=== PATIENT | male | born 1980 | race Caucasian/White ===

== ENCOUNTER 2017-01-11 23:32 | Emergency (ER) | payer BC, SELFPAY ==
[2017-01-11] MEDS ORDERED: Ondansetron HCl/PF 4 MG/2 ML Vial ONE (23:58)
[2017-01-11] MEDS ORDERED: Famotidine 20 MG TAB ONE (23:58)
[2017-01-12] MEDS ORDERED: Ondansetron HCl/PF 4 MG/2 ML Vial ONE
[2017-01-12 00:02] LABS: #Basophils 0.1 thou/uL (0.0-0.2); #Eosinphils 0.2 thou/uL (0.0-0.7); #Lymphocytes 4.2 thou/uL (1.20-3.40); #Monocytes 1.1 thou/uL (0.11-0.59); #Neutrophils 7.3 thou/uL (1.40-6.50); %Eosinophils 1.6 % (0.0-10.0); %Monocytes 8.7 % (0.0-10.0); Mean Platelet Volume 6.7 fL (7.4-10.4); Red Blood Cell (RBC) Count 6.25 mill/uL (4.70-6.10); White Blood Cell (WBC) Count 12.9 thou/uL (4.8-10.8)
[2017-01-12] MEDS ORDERED: Famotidine In NaCl 20 mg/50 ml Premix Bag ONE (00:02)
[2017-01-12] MEDS ORDERED: Fentanyl 100 MCG/2 ML VIAL ONE ×2 (00:04→00:25)
[2017-01-12 00:10] LABS: ALT (SGPT) 42 U/L (0-55); AST (SGOT) 25 U/L (5-34); Alkaline Phosphatase 103 U/L (40-150); Anion Gap 18 mmol/L (10-20); BUN (Urea Nitrogen) 21 mg/dL (8.9-20.6); Bilirubin, Total 0.4 mg/dL (0.2-1.2); Calc. Creatinine Clearance 0 mL/min (70-130); Calcium 9.6 mg/dL (7.8-10.44); Carbon Dioxide 22 mmol/L (22-29); Chloride 103 mmol/L (98-107); Estimated GFR-MDRD 69; Globulin 3.9 g/dL (2.4-3.5); Lipase 59 U/L (8-78); Protein, Total 8.4 g/dL (6.0-8.3)
[2017-01-12 00:12] LABS: Troponin I Less than 0.010 ng/mL (< 0.028)
[2017-01-12 00:28] LABS: Bilirubin Negative (Negative); Blood, Urine Negative (Negative); Glucose, Urine (Dipstick) Negative (Negative); Ketone, Urine Negative (Negative); Nitrite Negative (Negative); Protein, Urine (Dipstick) 30 mg/dL (Neg-Trace)
[2017-01-12 00:30] LABS: Bacteria/HPF 1+ HPF (None Seen); RBC/HPF 0-3 HPF (0-3); Squamous Epithelial 0-3 HPF (0-3)
[2017-01-12] MEDS ORDERED: cefTRIAXone\\ROCEPHIN 1 GM VIAL ONE (01:22)
[2017-01-12] MEDS ORDERED: Sodium Chloride 0.9% 100 ML ONE (01:23)
--- NOTE | 2017-01-12 07:22 | RAD ---
PORTABLE CHEST: Date: 01/11/17 An AP portable film at 2340 hours is compared with the 11/05/13 study. There has been no adverse interval change. The heart is normal in size and the lungs are clear. No i nfiltrate or effusion was seen. The mediastinum appears normal and the trachea is midline. IMPRESSION: No acute thoracic findings. POS: HOME
--- NOTE | 2017-01-12 08:51 | CT ---
PRELIMINARY REPORT/[facility]/EMERGENCY AFTER HOURS PROCEDURE: EXAM: CT Abdomen and Pelvis Without Intravenous Contrast. CLINICAL HISTORY: Pain; Abdominal pain; Flank; Right; Patient HX: Pt presents to the er for stabbing back pain that radiates to right side; Onset earlier today. HX of kidney stones TECHNIQUE: Axial computed tomography images of the abdomen and pelvis without intravenous contrast. Coronal reformatted images were created and reviewed. EXAM DATE/TIME: 01/12/2017 12:49 AM COMPARISON: Correlation is made with report only from study dated 12/31/2007. FINDINGS: Lower thorax: No acute findings. ABDOMEN: Liver: The liver is enlarged and diffusely low in density compatible with steatosis. Gallbladder and bile ducts: The gallbladder is contracted. No calcified stones. No ductal dilation. Pancreas: Unremarkable. No ductal dilation. Spleen: Unremarkable. No splenomegaly. Adrenals: Unremarkable. No mass. Kidneys and ureters: Unremarkable. No obstructing stones. No hydronephrosis. Stomach and bowel: 12 mm rectangular density within the lumen of the ascending colon which may repre sent a pill remnant. No bowel obstruction. No appreciable mucosal thickening. Appendix: Normal appendix. No findings to suggest acute appendicitis. PELVIS: Bladder: The urinary bladder is partially decompressed. Moderate circumferential urinary bladder wal l thickening. Reproductive: Unremarkable as visualized. ABDOMEN and PELVIS: Intraperitoneal space: Unremarkable. No free air. No significant fluid collection. Bones/joints: No acute fracture. No dislocation. Soft tissues: Small fat-containing umbilical and bilateral inguinal hernias. Vasculature: Unremarkable. No abdominal aortic aneurysm. Lymph nodes: Borderline prominent mary kate hepatic and mary kate caval lymph nodes. IMPRESSION: 1. No renal, ureteral or bladder calculi. No evidence for renal obstruction. 2. Moderate circumferential urinary bladder wall thickening. This may be related to degree of disten tion. Please correlate clinically for cystitis. 3. Other findings as above. ---We are pleased to participate in the care of your patient.--- Thank you for allowing us to participate in the care of your patient. Dictated and Authenticated by: Junior James MD 01/12/2017 1:24 AM Central Time ([place] \T\ [place]) FINAL REPORT CT ABDOMEN AND PELVIS WITHOUT CONTRAST: Date: 01/12/[address] of the abdomen and pelvis was done without oral or IV contrast. Axial slices were acquired and then coronal reconstructions were done. FINDINGS: The lung bases are clear. The liver is perhaps upper normal in size and internally it is somewhat low density suggesting the p ossibility of fatty infiltration. No focal hepatic lesions were appreciated. A little increased dens ity in the medial right lobe on scan 27 of the axial series is probably volume averaging. The pancre as was unremarkable. The gallbladder contained no observable calcifications. The adrenal glands and kidneys were unremarkable. There was no sign of renal or ureteral calculi. The abdominal aorta was n ormal in caliber. The spleen was normal in size. The bowel is nondistended and there are no inflammatory changes around bowel. The appendix appears n ormal. There is no bowel wall thickening. No free air or free fluid was seen. CT of the pelvis showed no pelvic masses, inflammatory changes, or adenopathy. The urinary bladder w all is upper normal in thickness, but this could be related to it not being very distended. There is a minimal fat-filled umbilical hernia. The remainder of the abdominal wall appears normal. The patient has a congenitally small spinal canal which could contribute to some relative spinal neha nosis at several levels. The L2-L3 level, in particular, is quite small, as is the L4 level. There i s a mild concentric bulge of the L5-S1 disc. If the patient's pain suggested lumbar spine issues, a MRI might be useful for further investigation of neural impingement. IMPRESSION: 1. Probable fatty infiltration of the liver. 2. No urinary tract obstruction or calculi. 3. 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 Further investi gation here could be fruitful. Report in agreement with preliminary reading by Brennan. POS: HOME
== END 2017-01-12 02:05 | disposition home or self-care (01) ==
LOC: BURERS 23:32
DX: K80.50 Calculus of bile duct without cholangitis or cholecystitis without obstruction (principal); N30.00 Acute cystitis without hematuria; E78.5 Hyperlipidemia, unspecified; I10 Essential (primary) hypertension; F17.210 Nicotine dependence, cigarettes, uncomplicated; Z79.82 Long term (current) use of aspirin
CPT/HCPCS: 71010; 74176; 80053; 81003; 81015; 82553; 83690; 84484; 85025; 87086; 87491; 87591; 93005; 96361; 96365; 96367; 96375; J0696; J2405; J3010; J7050

== ENCOUNTER 2018-02-06 20:21 | Emergency (ER) | payer SELFPAY ==
[2018-02-06] MEDS ORDERED: Magnesium Citrate 300 ML BOT ONE (20:51)
--- NOTE | 2018-02-06 23:08 | RAD ---
CHEST TWO VIEWS: 02/06/18 Comparison is made with prior chest films of 01/11/17 and 11/05/13. The heart is normal in size and the lungs are clear. No infiltrate or effusion was seen. The mediasti num appears normal. No pulmonary nodules are seen. IMPRESSION: No acute findings. POS: HOME
== END 2018-02-06 21:20 | disposition home or self-care (01) ==
LOC: BURERS 20:21
DX: K64.8 Other hemorrhoids (principal); E78.5 Hyperlipidemia, unspecified; I10 Essential (primary) hypertension; F17.210 Nicotine dependence, cigarettes, uncomplicated; Z79.899 Other long term (current) drug therapy; Z79.82 Long term (current) use of aspirin
CPT/HCPCS: 71046

== ENCOUNTER 2018-03-28 20:03 | Emergency (ER) | payer SELFPAY ==
[2018-03-28 20:42] LABS: Bilirubin Negative (Negative); Blood, Urine Negative (Negative); Clarity Clear (Clear); Glucose, Urine (Dipstick) Negative (Negative); Leukocyte Negative (Negative); Nitrite Negative (Negative); Protein, Urine (Dipstick) Negative (Neg-Trace); Urobilinogen 0.2 mg/dL (0.2-1.0); pH, Urine 5.5 (5.0-9.0)
[2018-03-28] MEDS ORDERED: Ketorolac Tromethamine 30 MG/ML VIAL ONE (21:10)
[2018-03-28] MEDS ORDERED: Dicyclomine 20 MG TAB ONE (21:10)
--- NOTE | 2018-03-28 23:19 | CT ---
CT ABDOMEN AND PELVIS WITHOUT CONTRAST: 03/28/2018 COMPARISON: 01/12/2017 TECHNIQUE: Axial slices were acquired and coronal reconstructions were done. FINDINGS: The lung bases are clear. The liver shows diffuse fatty infiltration but no focal findings. It is n ormal in size, as is the spleen. The pancreas, adrenal glands, and kidneys appear normal. There is no sign of urinary tract calculi or obstruction. The aorta is normal in caliber. There is no distention of bowel to suggest obstruction. The appendix is identified and appears julieta l. There are no inflammatory changes around the bowel. No free air or free fluid is seen. A calcif ication is noted in the bowel, in the right upper quadrant, that it is not of great concern. CT of the pelvis shows no pelvic masses, fluid collections, or inflammatory changes. As was mentione d on the prior report, the patient has a congenitally small spinal canal. IMPRESSION: Diffuse fatty infiltration of the liver. No acute abdominal or pelvic findings. POS: HOME
== END 2018-03-28 21:37 | disposition home or self-care (01) ==
LOC: BURERS 20:03
DX: S39.011A Strain of muscle, fascia and tendon of abdomen, initial encounter (principal); E78.5 Hyperlipidemia, unspecified; I10 Essential (primary) hypertension; F17.210 Nicotine dependence, cigarettes, uncomplicated; Z79.82 Long term (current) use of aspirin; Z79.899 Other long term (current) drug therapy; X58.XXXA Exposure to other specified factors, initial encounter
CPT/HCPCS: 74176; 81003; 96372; J1885

== ENCOUNTER 2018-10-01 09:51 | Emergency (ER) | payer OTHER, SELFPAY ==
[2018-10-01] MEDS ORDERED: methylPREDNISolone Sod Succ/PF 125 MG/2 ML VIAL ONE (10:33)
== END 2018-10-01 10:42 | disposition home or self-care (01) ==
LOC: BURERS 09:51
DX: S39.012A Strain of muscle, fascia and tendon of lower back, initial encounter (principal); M54.16 Radiculopathy, lumbar region; E78.5 Hyperlipidemia, unspecified; I10 Essential (primary) hypertension; F43.10 Post-traumatic stress disorder, unspecified; F17.210 Nicotine dependence, cigarettes, uncomplicated; X58.XXXA Exposure to other specified factors, initial encounter
CPT/HCPCS: 96372; J2930

== ENCOUNTER 2019-09-10 18:33 | Emergency (ER) | payer OTHER ==
[2019-09-10] MEDS ORDERED: Ketorolac Tromethamine 30 MG/ML VIAL ONE (19:07)
[2019-09-10] MEDS ORDERED: Ondansetron PF 4 MG/2 ML Vial ONE (19:07)
[2019-09-10] MEDS ORDERED: methylPREDNISolone Sod Succ/PF 125 MG/2 ML VIAL ONE (19:07)
[2019-09-10 19:19] LABS: #Basophils 0.1 thou/uL (0.0-0.2); #Eosinphils 0.2 thou/uL (0.0-0.7); #Lymphocytes 1.8 thou/uL (1.20-3.40); #Monocytes 1.1 thou/uL (0.11-0.59); #Neutrophils 10.9 thou/uL (1.40-6.50); %Basophils 0.9 % (0.0-1.0); %Eosinophils 1.4 % (0.0-10.0); %Lymphocytes 12.8 % (21.0-51.0); %Monocytes 7.5 % (0.0-10.0); %Neutrophils 77.4 % (42.0-75.0); Hemoglobin 16.9 g/dL (14.0-18.0); MDiff Complete? YES; Manual Diff?? NO; Mean Corpuscular Hemoglobin 26.3 pg (27.0-31.0); Mean Corpuscular Volume 87.4 fL (78.0-98.0); Mean Platelet Volume 7.2 fL (7.4-10.4); Platelet Count 313 thou/uL (130-400); RBC Distribution Width 14.7 % (11.5-14.5); Red Blood Cell (RBC) Count 6.42 mill/uL (4.70-6.10); White Blood Cell (WBC) Count 14.1 thou/uL (4.8-10.8)
[2019-09-10 19:26] LABS: ALT (SGPT) 64 U/L (8-55); AST (SGOT) 32 U/L (5-34); Albumin 4.8 g/dL (3.5-5.0); Alkaline Phosphatase 139 U/L (40-110); Anion Gap 16 mmol/L (10-20); BUN (Urea Nitrogen) 16 mg/dL (8.9-20.6); Bilirubin, Total 0.6 mg/dL (0.2-1.2); Calc. Creatinine Clearance 0 mL/min (70-130); Calcium 10.9 mg/dL (7.8-10.44); Carbon Dioxide 24 mmol/L (22-29); Chloride 104 mmol/L (98-107); Estimated GFR-MDRD 42; Glucose 113 mg/dL (70-105); Potassium 4.9 mmol/L (3.5-5.1); Protein, Total 8.8 g/dL (6.0-8.3); Sodium 139 mmol/L (136-145)
--- NOTE | 2019-09-10 20:02 | RAD ---
PORTABLE CHEST: 09/10/19 An AP portable film at 1859 is compared with the 02/06/18 study. The heart size is unchanged. There is no vascular congestion, edema, or pleural effusion. The lungs a re clear. IMPRESSION: No acute thoracic finding. POS: HOME
== END 2019-09-10 19:57 | disposition home or self-care (01) ==
LOC: BURERS 18:33
DX: I31.9 Disease of pericardium, unspecified (principal); K52.9 Noninfective gastroenteritis and colitis, unspecified; R11.2 Nausea with vomiting, unspecified; K21.9 Gastro-esophageal reflux disease without esophagitis; E78.5 Hyperlipidemia, unspecified; I10 Essential (primary) hypertension; F43.10 Post-traumatic stress disorder, unspecified; F17.210 Nicotine dependence, cigarettes, uncomplicated; Z79.899 Other long term (current) drug therapy; Z79.82 Long term (current) use of aspirin
CPT/HCPCS: 36415; 71045; 80053; 84484; 85025; 93005; 96361; 96374; 96375; J1885; J2405; J2930

== ENCOUNTER 2019-11-22 08:41 | Emergency (ER) | payer OTHER ==
[2019-11-22] MEDS ORDERED: Lidocaine Viscous Sol 2% 15 ml UD Cup ONE (09:05)
[2019-11-22 09:38] LABS: Bilirubin Negative (Negative); Blood, Urine Negative (Negative); Clarity Clear (Clear); Glucose, Urine (Dipstick) 250 mg/dL (Negative); Leukocyte Negative (Negative); Nitrite Negative (Negative); Protein, Urine (Dipstick) Negative (Neg-Trace)
== END 2019-11-22 10:03 | disposition home or self-care (01) ==
LOC: BURERS 08:41
DX: R33.9 Retention of urine, unspecified (principal); L89.322 Pressure ulcer of left buttock, stage 2; L89.312 Pressure ulcer of right buttock, stage 2; K21.9 Gastro-esophageal reflux disease without esophagitis; E78.5 Hyperlipidemia, unspecified; I10 Essential (primary) hypertension; F43.10 Post-traumatic stress disorder, unspecified; Z87.891 Personal history of nicotine dependence
CPT/HCPCS: 36416; 51702; 81003; 87086

== ENCOUNTER 2019-11-24 20:52 | Emergency (ER) | payer OTHER ==
[2019-11-24 21:37] LABS: Bilirubin Negative (Negative); Blood, Urine Large (Negative); Clarity Cloudy (Clear); Glucose, Urine (Dipstick) Negative (Negative); Leukocyte Moderate (Negative); Nitrite Positive (Negative); Protein, Urine (Dipstick) 100 mg/dL (Neg-Trace)
[2019-11-24 21:44] LABS: Bacteria/HPF 2+ HPF (None Seen); RBC/HPF Greater than 50 HPF (0-3); Squamous Epithelial 0-3 HPF (0-3); WBC/HPF 21-50 HPF (0-3)
== END 2019-11-24 21:55 | disposition home or self-care (01) ==
LOC: BURERS 20:52
DX: N30.00 Acute cystitis without hematuria (principal); K21.9 Gastro-esophageal reflux disease without esophagitis; E78.5 Hyperlipidemia, unspecified; I10 Essential (primary) hypertension; F43.10 Post-traumatic stress disorder, unspecified; F17.210 Nicotine dependence, cigarettes, uncomplicated
CPT/HCPCS: 81003; 81015; 87077; 87086; 87186; 99283

== ENCOUNTER 2021-02-14 03:23 | Emergency (ER) | payer OTHER | END 2021-02-14 04:10 | disposition home or self-care (01) | LOC: BURERS 03:23 | DX: F07.81 Postconcussional syndrome (principal); M54.5 Low back pain; G89.29 Other chronic pain; R20.2 Paresthesia of skin; K21.9 Gastro-esophageal reflux disease without esophagitis; E78.5 Hyperlipidemia, unspecified; I10 Essential (primary) hypertension; E11.9 Type 2 diabetes mellitus without complications; Z87.891 Personal history of nicotine dependence; Z79.899 Other long term (current) drug therapy | CPT/HCPCS: 70450 ==

== ENCOUNTER 2021-07-10 22:17 | Emergency (ER) | payer OTHER ==
[2021-07-11 23:01] LABS: SARS-CoV-2 PCR by NAA Not Detected (NotDetected)
== END 2021-07-10 22:43 | disposition home or self-care (01) ==
LOC: BURERS 22:17
DX: J02.9 Acute pharyngitis, unspecified (principal); Z20.822 Contact with and (suspected) exposure to COVID-19; K21.9 Gastro-esophageal reflux disease without esophagitis; I10 Essential (primary) hypertension; E78.5 Hyperlipidemia, unspecified; E11.9 Type 2 diabetes mellitus without complications; Z87.891 Personal history of nicotine dependence
CPT/HCPCS: 99283; U0003; U0005

== ENCOUNTER 2021-10-14 22:53 | Emergency (ER) | payer OTHER ==
[2021-10-14 23:17] LABS: #Basophils 0.1 thou/uL (0.0-0.2); #Eosinphils 0.4 thou/uL (0.0-0.7); #Lymphocytes 2.2 thou/uL (1.20-3.40); #Monocytes 0.8 thou/uL (0.11-0.59); #Neutrophils 3.6 thou/uL (1.40-6.50); %Basophils 1.6 % (0.0-1.0); %Eosinophils 5.7 % (0.0-10.0); %Lymphocytes 30.4 % (21.0-51.0); %Monocytes 11.8 % (0.0-10.0); %Neutrophils 50.6 % (42.0-75.0); Hemoglobin 13.7 g/dL (14.0-18.0); Mean Corpuscular HGB CONC 33.3 g/dL (32.0-36.0); Mean Corpuscular Hemoglobin 27.4 pg (27.0-31.0); Mean Corpuscular Volume 82.3 fL (78.0-98.0); Mean Platelet Volume 7.2 fL (7.4-10.4); Platelet Count 215 thou/uL (130-400); RBC Distribution Width 13.7 % (11.5-14.5); Red Blood Cell (RBC) Count 4.99 mill/uL (4.70-6.10); White Blood Cell (WBC) Count 7.2 thou/uL (4.8-10.8)
[2021-10-14 23:35] LABS: ALT (SGPT) 40 U/L (8-55); AST (SGOT) 47 U/L (5-34); Albumin 3.6 g/dL (3.5-5.0); Alkaline Phosphatase 91 U/L (40-110); Anion Gap 12 mmol/L (10-20); BUN (Urea Nitrogen) 15 mg/dL (8.9-20.6); Bilirubin, Total 0.6 mg/dL (0.2-1.2); Calc. Creatinine Clearance 0 mL/min (70-130); Calcium 9.3 mg/dL (7.8-10.44); Carbon Dioxide 26 mmol/L (22-29); Chloride 104 mmol/L (98-107); Glucose 114 mg/dL (70-105); Potassium 3.4 mmol/L (3.5-5.1); Protein, Total 6.6 g/dL (6.0-8.3); Sodium 139 mmol/L (136-145)
[2021-10-14 23:36] LABS: Acetaminophen Less than 6.0 mcg/mL (10.0-30.0); Alcohol Less than 10 mg/dL (Less than 10); CK (CPK) 797 U/L (30-200); Salicylate Less than 8.0 mg/dL (15.0-30.0)
[2021-10-15 01:22] LABS: SARS-CoV-2 NAA Rapid Test Not Detected (NotDetected)
== END 2021-10-15 01:00 | disposition short-term general hospital (02) ==
LOC: BURERS 22:53
DX: R09.02 Hypoxemia (principal); R06.81 Apnea, not elsewhere classified; M62.82 Rhabdomyolysis; Z20.822 Contact with and (suspected) exposure to COVID-19; K21.9 Gastro-esophageal reflux disease without esophagitis; I10 Essential (primary) hypertension; E11.9 Type 2 diabetes mellitus without complications; E78.5 Hyperlipidemia, unspecified; F17.220 Nicotine dependence, chewing tobacco, uncomplicated; Z79.899 Other long term (current) drug therapy
CPT/HCPCS: 36416; 70450; 71045; 80053; 80307; 82550; 82553; 83880; 84484; 85025; 93005; 94760; U0002

== ENCOUNTER 2021-10-25 19:39 | Emergency (ER) | payer OTHER ==
[2021-10-25] MEDS ORDERED: AMOXicillin 250 MG CAP ONE (20:40)
== END 2021-10-25 20:49 | disposition home or self-care (01) ==
LOC: BURERS 19:39
DX: J02.9 Acute pharyngitis, unspecified (principal); I10 Essential (primary) hypertension; K21.9 Gastro-esophageal reflux disease without esophagitis; E11.9 Type 2 diabetes mellitus without complications; E78.5 Hyperlipidemia, unspecified; Z87.891 Personal history of nicotine dependence
CPT/HCPCS: 87081; 87430; 99283

== ENCOUNTER 2021-11-18 06:54 | Emergency (ER) | payer OTHER ==
[2021-11-18] MEDS ORDERED: predniSONE 20 MG TAB ONE (09:40)
[2021-11-18 16:52] LABS: SARS-CoV-2 PCR by NAA Not Detected (NotDetected)
== END 2021-11-18 09:55 | disposition home or self-care (01) ==
LOC: BURERS 06:54
DX: J18.9 Pneumonia, unspecified organism (principal); B34.9 Viral infection, unspecified; E78.5 Hyperlipidemia, unspecified; I10 Essential (primary) hypertension; F17.220 Nicotine dependence, chewing tobacco, uncomplicated; Z20.822 Contact with and (suspected) exposure to COVID-19; Z79.899 Other long term (current) drug therapy
CPT/HCPCS: 71045; 71250; 87804; J7512; J7620; U0003; U0005

== ENCOUNTER 2022-01-17 16:54 | Emergency (ER) | payer OTHER ==
[2022-01-17] MEDS ORDERED: Benzonatate 100 MG CAP ONE ×2 (17:29)
[2022-01-17 17:40] LABS: #Basophils 0.1 thou/uL (0.0-0.2); #Eosinphils 0.1 thou/uL (0.0-0.7); #Lymphocytes 0.7 thou/uL (1.20-3.40); #Monocytes 0.9 thou/uL (0.11-0.59); #Neutrophils 4.7 thou/uL (1.40-6.50); %Basophils 1.2 % (0.0-1.0); %Eosinophils 1.3 % (0.0-10.0); %Lymphocytes 11.5 % (21.0-51.0); %Monocytes 13.6 % (0.0-10.0); %Neutrophils 72.5 % (42.0-75.0); Hemoglobin 14.1 g/dL (14.0-18.0); Mean Corpuscular HGB CONC 31.7 g/dL (32.0-36.0); Mean Corpuscular Volume 85.2 fL (78.0-98.0); Platelet Count 230 thou/uL (130-400); RBC Distribution Width 14.3 % (11.5-14.5); Red Blood Cell (RBC) Count 5.24 mill/uL (4.70-6.10); White Blood Cell (WBC) Count 6.4 thou/uL (4.8-10.8)
[2022-01-17 17:54] LABS: ALT (SGPT) 58 U/L (8-55); AST (SGOT) 40 U/L (5-34); Albumin 3.8 g/dL (3.5-5.0); Alkaline Phosphatase 111 U/L (40-110); Anion Gap 12 mmol/L (10-20); BUN (Urea Nitrogen) 8 mg/dL (8.9-20.6); Bilirubin, Total 0.6 mg/dL (0.2-1.2); Calc. Creatinine Clearance 0 mL/min (70-130); Calcium 8.8 mg/dL (7.8-10.44); Carbon Dioxide 29 mmol/L (22-29); Chloride 103 mmol/L (98-107); Globulin 3.5 g/dL (2.4-3.5); Glucose 118 mg/dL (70-105); Protein, Total 7.3 g/dL (6.0-8.3); Sodium 140 mmol/L (136-145)
[2022-01-17 18:12] LABS: CKMB 6.3 ng/mL (0-6.6)
[2022-01-17] MEDS ORDERED: Aspirin Chewable 81 MG TAB ONE (18:23)
[2022-01-17] MEDS ORDERED: Acetaminophen/Codeine 30-300mg Tablet ONE (19:16)
[2022-01-17] MEDS ORDERED: Diltiazem 125 MG/25 ML ONE (20:01)
[2022-01-17 21:42] LABS: CKMB 5.2 ng/mL (0-6.6)
[2022-01-18 00:21] LABS: SARS-CoV-2 PCR by NAA Not Detected (NotDetected)
== END 2022-01-17 22:40 | disposition short-term general hospital (02) ==
LOC: BURERS 16:54
DX: I48.92 Unspecified atrial flutter (principal); Z20.822 Contact with and (suspected) exposure to COVID-19; K21.9 Gastro-esophageal reflux disease without esophagitis; I10 Essential (primary) hypertension; E78.5 Hyperlipidemia, unspecified; E11.9 Type 2 diabetes mellitus without complications; Z87.891 Personal history of nicotine dependence; Z79.899 Other long term (current) drug therapy
CPT/HCPCS: 36415; 71045; 80053; 82553; 83605; 83880; 84484; 85025; 93005; 94760; 96374; 96376; U0003; U0005

== ENCOUNTER 2022-05-21 23:21 | Emergency (ER) | payer OTHER ==
[2022-05-21 23:46] LABS: #Basophils 0.1 thou/uL (0.0-0.2); #Eosinphils 0.5 thou/uL (0.0-0.7); #Lymphocytes 2.2 thou/uL (1.20-3.40); %Basophils 0.9 % (0.0-1.0); %Eosinophils 4.9 % (0.0-10.0); %Lymphocytes 20.2 % (21.0-51.0); %Monocytes 9.2 % (0.0-10.0); %Neutrophils 64.8 % (42.0-75.0); Hemoglobin 15.4 g/dL (14.0-18.0); Mean Corpuscular HGB CONC 33.5 g/dL (32.0-36.0); Mean Corpuscular Hemoglobin 27.8 pg (27.0-31.0); Mean Corpuscular Volume 83.1 fL (78.0-98.0); Mean Platelet Volume 8.1 fL (7.4-10.4); Platelet Count 241 thou/uL (130-400); RBC Distribution Width 14.7 % (11.5-14.5); Red Blood Cell (RBC) Count 5.52 mill/uL (4.70-6.10); White Blood Cell (WBC) Count 10.8 thou/uL (4.8-10.8)
[2022-05-21] MEDS ORDERED: Aspirin Chewable 81 MG TAB ONE (23:59)
[2022-05-22] LABS: ALT (SGPT) 30 U/L (8-55); AST (SGOT) 27 U/L (5-34); Albumin 3.8 g/dL (3.5-5.0); Alkaline Phosphatase 118 U/L (40-110); Anion Gap 15 mmol/L (10-20); BUN (Urea Nitrogen) 15 mg/dL (8.9-20.6); Bilirubin, Total 0.4 mg/dL (0.2-1.2); Calc. Creatinine Clearance 0 mL/min (70-130); Calcium 8.5 mg/dL (7.8-10.44); Carbon Dioxide 24 mmol/L (22-29); Chloride 104 mmol/L (98-107); Estimated GFR 89; Globulin 3.9 g/dL (2.4-3.5); Glucose 289 mg/dL (70-105); Potassium 4.9 mmol/L (3.5-5.1); Protein, Total 7.7 g/dL (6.0-8.3); Sodium 138 mmol/L (136-145)
== END 2022-05-22 02:20 | disposition home or self-care (01) ==
LOC: BURERS 23:21
DX: R07.2 Precordial pain (principal); E78.5 Hyperlipidemia, unspecified; K21.9 Gastro-esophageal reflux disease without esophagitis; I10 Essential (primary) hypertension; E11.9 Type 2 diabetes mellitus without complications; I25.2 Old myocardial infarction; Z87.891 Personal history of nicotine dependence; Z79.899 Other long term (current) drug therapy
CPT/HCPCS: 71045; 80053; 84484; 85025; 93005

== ENCOUNTER 2023-10-22 02:08 | Emergency (ER) | payer OTHER ==
[2023-10-22] MEDS ORDERED: Benzonatate 100 MG CAP ONE (02:41)
[2023-10-22] MEDS ORDERED: Dexamethasone 10 MG/ML VIAL ONE (02:56)
[2023-10-22] MEDS ORDERED: Ipratropium/Albuterol 3 ML NEB ONE (02:56)
[2023-10-22] MEDS ORDERED: Azithromycin 250 MG TAB ONE (03:16)
[2023-10-22 03:37] LABS: SARS-CoV-2 NAA Rapid Test Not Detected (NotDetected)
== END 2023-10-22 03:56 | disposition home or self-care (01) ==
LOC: BURERS 02:08
DX: J21.0 Acute bronchiolitis due to respiratory syncytial virus (principal); E11.9 Type 2 diabetes mellitus without complications; I48.91 Unspecified atrial fibrillation; Z87.891 Personal history of nicotine dependence; Z79.84 Long term (current) use of oral hypoglycemic drugs; Z79.899 Other long term (current) drug therapy; Z79.01 Long term (current) use of anticoagulants
CPT/HCPCS: 0241U; 71046; 87081; 87430; J1100; J7620

== ENCOUNTER 2024-03-12 08:09 | Emergency (ER) | payer OTHER ==
[2024-03-12] MEDS ORDERED: Aspirin Chewable 81 MG TAB ONE ×2 (08:41→08:42)
[2024-03-12 08:47] LABS: #Basophils 0.1 thou/uL (0.0-0.2); #Eosinphils 0.2 thou/uL (0.0-0.7); #Lymphocytes 2.1 thou/uL (1.20-3.40); #Monocytes 0.8 thou/uL (0.11-0.59); #Neutrophils 5.7 thou/uL (1.40-6.50); %Basophils 0.9 % (0.0-1.0); %Eosinophils 2.3 % (0.0-10.0); %Lymphocytes 23.4 % (21.0-51.0); %Monocytes 8.7 % (0.0-10.0); %Neutrophils 64.8 % (42.0-75.0); Hematocrit 57.8 % (42.0-52.0); Hemoglobin 17.7 g/dL (14.0-18.0); Mean Corpuscular HGB CONC 30.7 g/dL (32.0-36.0); Mean Corpuscular Hemoglobin 25.9 pg (27.0-31.0); Mean Corpuscular Volume 84.5 fl (78.0-98.0); Mean Platelet Volume 7.2 fL (7.4-10.4); Platelet Count 242 10x3/uL (130-400); Red Blood Cell (RBC) Count 6.84 mill/uL (4.70-6.10); White Blood Cell (WBC) Count 8.8 10x3/uL (4.8-10.8)
[2024-03-12 09:01] LABS: ALT (SGPT) 33 U/L (8-55); AST (SGOT) 22 U/L (5-34); Albumin 3.9 g/dL (3.5-5.0); Alkaline Phosphatase 128 U/L (40-110); Anion Gap 13 mmol/L (10-20); BUN (Urea Nitrogen) 12 mg/dL (8.9-20.6); Bilirubin, Total 0.6 mg/dL (0.2-1.2); Calc. Creatinine Clearance 0 mL/min (70-130); Calcium 9.2 mg/dL (7.8-10.44); Carbon Dioxide 28 mmol/L (22-29); Chloride 101 mmol/L (98-107); Estimated GFR 108; Globulin 4.3 g/dL (2.4-3.5); Glucose 153 mg/dL (70-105); Potassium 4.2 mmol/L (3.5-5.1); Protein, Total 8.2 g/dL (6.0-8.3); Sodium 138 mmol/L (136-145)
[2024-03-12 09:02] LABS: Troponin I 0.038 ng/mL (< 0.028)
[2024-03-12] MEDS ORDERED: Iopamidol 370 76% 100 ML VIAL ONE (11:00)
[2024-03-12 11:27] LABS: Troponin I 0.011 ng/mL (< 0.028)
== END 2024-03-12 11:40 | disposition home or self-care (01) ==
LOC: BURERS 08:09
DX: R07.9 Chest pain, unspecified (principal); J20.9 Acute bronchitis, unspecified; I10 Essential (primary) hypertension; E11.9 Type 2 diabetes mellitus without complications; Z87.891 Personal history of nicotine dependence
CPT/HCPCS: 36415; 71045; 71275; 80053; 83880; 84484; 85025; 93005; Q9967

== ENCOUNTER 2025-08-01 11:24 | Emergency (ER) | payer OTHER ==
[2025-08-01 12:11] LABS: Hematocrit 44.5 % (42.0-52.0); Hemoglobin 15.8 g/dL (14.0-18.0); Mean Corpuscular Hemoglobin 27.5 pg (27.0-31.0); Mean Corpuscular Volume 77.6 fl (78.0-98.0); Platelet Count 269 10x3/uL (130-400); Red Blood Cell (RBC) Count 5.74 mill/uL (4.70-6.10); White Blood Cell (WBC) Count 8.6 10x3/uL (4.8-10.8)
[2025-08-01 12:16] LABS: ALT (SGPT) 24 U/L (Less than 45); AST (SGOT) 34 U/L (11-34); Albumin 4.1 g/dL (3.1-4.5); Alkaline Phosphatase 118 U/L (40-110); Anion Gap 15 mmol/L (10-20); BUN (Urea Nitrogen) 18 mg/dL (8.9-20.6); Bilirubin, Total 0.5 mg/dL (0.3-1.2); Calc. Creatinine Clearance 0 mL/min (70-130); Calcium 9.0 mg/dL (7.8-10.44); Carbon Dioxide 21 mmol/L (22-29); Chloride 106 mmol/L (98-107); Globulin 3.5 g/dL (2.4-3.5); Glucose 99 mg/dL (70-105); Magnesium 2.0 mg/dL (1.6-2.6); Potassium 4.3 mmol/L (3.5-5.1); Sodium 138 mmol/L (136-145)
[2025-08-01 12:22] LABS: MDiff Complete? YES
[2025-08-01 12:53] LABS: Troponin I Less than 0.010 ng/mL (< 0.028)
== END 2025-08-01 13:09 | disposition home or self-care (01) ==
LOC: BURERS 11:24
DX: E86.0 Dehydration (principal); E11.649 Type 2 diabetes mellitus with hypoglycemia without coma; K21.9 Gastro-esophageal reflux disease without esophagitis; E78.5 Hyperlipidemia, unspecified; I25.10 Atherosclerotic heart disease of native coronary artery without angina pectoris; I11.0 Hypertensive heart disease with heart failure; I50.9 Heart failure, unspecified; I48.91 Unspecified atrial fibrillation; Z87.891 Personal history of nicotine dependence; Z79.01 Long term (current) use of anticoagulants; Z79.899 Other long term (current) drug therapy
CPT/HCPCS: 36416; 80053; 83735; 84484; 85025; 93005; 96360